=== PATIENT | male | born 1985 | race Caucasian/White ===

== ENCOUNTER 2018-10-21 10:57 | Emergency (ER) | payer MEDICAID ==
[~2018-10-21] VITALS: Ht 175.3 cm; Wt 77.1 kg
[~2018-10-21 10:57] MED LIST: ACIPHEX 20 MG T20 MG PO; AMOXICILLIN875 MG PO; ASACOL PO; BENTYL20 MG PO; CLONAZEPAM PO; CORTISPORIN OTI10 M2 OT; CYMBALTA20 MG PO; DEXILANT60 MG; DILAUDID2 M1 PO; DOXEPIN 10 MG C10 MG PO; FIORICET; FIORICET 50-321 EACH PO; HYDROCODON-ACE1 EAC7 PO; HYDROCODONE-AP1 EAC6 PO; INH; IRON; LATUDA60 MG PO; NEURONTIN 300M300 M2 PO; NEXIUM 40 MG CA40 M1 PO; NORCO 5-325 TA1 EAC1 PO; NORCO 5-325 TA1 EACH PO; PENTASA500 MG PO; REQUIP0.5 MG PO; RIFADIN150 MG PO; RISPERDAL; SEROQUEL 100 M100 MG; SEROQUEL 50 MG50 M1; TOPAMAX; VICODIN 5-5001 EACH PO; VITAMIN B-625 MG PO; WELLBUTRIN 100100 M1; WELLBUTRIN 100100 MG PO; ZANTAC 150MG T150 M1; ZOFRAN ODT4 MG PO; [UNRECOGNIZED DRUG - OTHER]
[2018-10-21] MEDS ORDERED: MINIPRESS2 MG PO (11:14)
[2018-10-21] MEDS ORDERED: NORCO 5-325 TA1 EACH PO (12:30)
[2018-10-21 12:49] VITALS: BP 109/70
== END 2018-10-21 12:49 | disposition home or self-care (01) ==
LOC: M.ERS 10:57
DX: S62.392A Other fracture of third metacarpal bone, right hand, initial encounter for closed fracture (principal); F17.200 Nicotine dependence, unspecified, uncomplicated; K50.90 Crohn's disease, unspecified, without complications; Z88.0 Allergy status to penicillin; Z88.1 Allergy status to other antibiotic agents; W10.9XXA Fall (on) (from) unspecified stairs and steps, initial encounter; Y92.89 Other specified places as the place of occurrence of the external cause; Y93.89 Activity, other specified; Y99.8 Other external cause status

== ENCOUNTER 2019-02-08 13:42 | Emergency (ER) | payer MEDICAID ==
[~2019-02-08] VITALS: Ht 172.7 cm; Wt 77.1 kg
[~2019-02-08 13:42] MED LIST changes: +MINIPRESS2 MG PO
[2019-02-08] MEDS ORDERED: EFFEXOR 5050 MG/1 T1 PO (13:52)
[2019-02-08] MEDS ORDERED: MOBIC7.5 MG PO (15:03)
[2019-02-08 15:13] VITALS: BP 122/69
== END 2019-02-08 15:14 | disposition home or self-care (01) ==
LOC: M.ERS 13:42
DX: M25.521 Pain in right elbow (principal); Z88.1 Allergy status to other antibiotic agents

== ENCOUNTER 2019-09-26 16:33 | Emergency (ER) | payer MEDICAID ==
[~2019-09-26] VITALS: Ht 172.7 cm; Wt 77.1 kg
[~2019-09-26 16:33] MED LIST changes: +EFFEXOR 5050 MG/1 T1 PO; +MOBIC7.5 MG PO
[2019-09-26 17:00] LABS: URINE BLOOD NEGATIVE (Negative); URINE CLARITY CLEAR; URINE COLOR YELLOW; URINE GLUCOSE-RANDOM NEGATIVE (Negative); URINE KETONES TRACE (Negative); URINE LEUKOCYTES-REFLEX NEGATIVE (Negative); URINE NITRITE-REFLEX NEGATIVE (Negative); URINE PROTEIN NEGATIVE (Negative); URINE SPECIFIC GRAVITY 1.015 (1.005-1.030)
[2019-09-26 17:03] LABS: ICTOTEST (BILI CONFIRMATORY) Negative (Negative); URINE BILIRUBIN 1+ (Negative)
[2019-09-26 17:07] LABS: ABSOLUTE EOSINOPHILS 0.6 thou/uL (0.0-0.7); ABSOLUTE LYMPHOCYTES 0.6 thou/uL (0.8-5.3); ABSOLUTE MONOCYTES 0.5 thou/uL (0.0-1.2); BASOPHILS 0.6 %; EOSINOPHILS 9.8 %; HEMATOCRIT 44.2 % (42.0-52.0); HEMOGLOBIN 15.4 gm/dL (14.0-18.0); LYMPHOCYTES 9.8 %; MCH 33.3 pg (26.0-34.0); MCHC 34.8 g/dL (28.0-37.0); MCV 95.7 fL (80.0-100.0); MONOCYTES 8.6 %; MPV 6.7 fl. (7.2-11.1); NUCLEATED RBCS 0 /100WBC; PLATELET COUNT* 294 thou/uL (150-400); POLYS 71.2 %; RBC 4.62 mil/uL (4.50-6.00); RDW-CV 13.7 % (10.5-14.5); WBC 5.6 thou/uL (4.0-11.0)
[2019-09-26 17:17] LABS: CALCIUM 9.5 mg/dL (8.5-10.1); CREATININE 0.9 mg/dL (0.6-1.3); POTASSIUM 4.1 mmol/L (3.5-5.1)
[2019-09-26 17:21] LABS: ALBUMIN 3.9 g/dL (3.4-5.0); TOTAL BILIRUBIN 0.4 mg/dL (<0.1-1.0); TOTAL PROTEIN 7.8 g/dL (6.4-8.2)
[2019-09-26] MEDS ORDERED: ZOFRAN4 MG PO (18:11)
[2019-09-26] MEDS ORDERED: BENTYL 20 MG TA20 M1 PO (18:11)
[2019-09-26 18:17] VITALS: BP 106/56
== END 2019-09-26 18:18 | disposition home or self-care (01) ==
LOC: M.ERS 16:33
PROVIDERS: Nurse Practitioner Family
DX: K52.9 Noninfective gastroenteritis and colitis, unspecified (principal); K50.90 Crohn's disease, unspecified, without complications; Z88.1 Allergy status to other antibiotic agents

== ENCOUNTER 2021-06-07 09:40 | Emergency (ER) | payer MEDICAID ==
[~2021-06-07] VITALS: Ht 175.3 cm; Wt 88.5 kg
[~2021-06-07 09:40] MED LIST changes: +BENTYL 20 MG TA20 M1 PO; +ZOFRAN4 MG PO
[2021-06-07] MEDS ORDERED: ADDERALL 10 MG10 MG PO (09:59)
[2021-06-07] MEDS ORDERED: PROTONIX40 M3 PO (09:59)
[2021-06-07] MEDS ORDERED: VALIUM2 MG PO (09:59)
[2021-06-07] MEDS ORDERED: APAP W/CODEINE1 TA2 PO (11:29)
[2021-06-07 11:37] VITALS: BP 134/72
== END 2021-06-07 11:37 | disposition home or self-care (01) ==
LOC: M.ERS 09:40
DX: M25.561 Pain in right knee (principal); F17.210 Nicotine dependence, cigarettes, uncomplicated; Z79.899 Other long term (current) drug therapy; Z88.1 Allergy status to other antibiotic agents; Z88.5 Allergy status to narcotic agent

== ENCOUNTER 2021-06-24 17:54 | Emergency (ER) | payer MEDICAID ==
[~2021-06-24] VITALS: Ht 175.3 cm; Wt 90.7 kg
[~2021-06-24 17:54] MED LIST changes: +ADDERALL 10 MG10 MG PO; +APAP W/CODEINE1 TA2 PO; +PROTONIX40 M3 PO; +VALIUM2 MG PO
[2021-06-24 19:32] VITALS: BP 131/70
== END 2021-06-24 19:33 ==
LOC: M.ERS 17:54
DX: S62.352A Nondisplaced fracture of shaft of third metacarpal bone, right hand, initial encounter for closed fracture (principal); S62.334A Displaced fracture of neck of fourth metacarpal bone, right hand, initial encounter for closed fracture; F17.210 Nicotine dependence, cigarettes, uncomplicated; Z98.890 Other specified postprocedural states; Z79.899 Other long term (current) drug therapy; Z88.1 Allergy status to other antibiotic agents; W22.01XA Walked into wall, initial encounter; Y93.89 Activity, other specified; Y92.89 Other specified places as the place of occurrence of the external cause; Y99.8 Other external cause status